=== PATIENT | male | born 1990 | race Caucasian/White ===

== ENCOUNTER 2016-06-24 12:12 | Emergency (ER) | payer SELFPAY ==
[~2016-06-24] VITALS: Ht 175.3 cm; Wt 68.2 kg
[2016-06-24 12:22] VITALS: TEMP 37.1; Ht 175.3 cm; Wt 68.2 kg
[2016-06-24] MEDS ORDERED: LORAZEPAM 1 MG TAB SL STA (13:02)
--- NOTE | 2016-06-24 13:07 | EMERGENCY ROOM VISIT NOTE ---
History Report prepared by Valenciaibcherise: Staci Chavez Under the Supervision of: Dr. Alexys Scruggs D.O. First contact with patient: 12:48 Chief Complaint: OVERDOSE (ACCIDENTAL) Stated Complaint: OVERDOSE Nursing Triage Summary: pt presents to ed via bls with [facility] police. pt is states taking methadone, smoking crack, taking adderal and speed. pt states being very jittery and unable to sleep. police at bedside due to pt being under arrest. pt aggitated upon examination. History of Present Illness The patient is a 25 year old male who presents to the Emergency Room with complaints of constant drug use. Per nursing staff, police and patient. The patient was brought to the ED by [facility] police. He was found running around people's yards and looking in their windows. The patient was then arrested by the police. The patient states that he has not slept lately and has been using meth, crack, Adderall, speed and heroine. He does use IV during drug abuse. Patient states he is negative for HIV or Hepatitis last time he was tested. This HPI is limited due to patient's uncooperative state. Source of History: patient History Limited By: poor cooperation Position: other (global) Quality: other (drug use) Note: Patient admits to using meth, crack, Adderall, speed and heroine. Review of Systems See HPI for pertinent positives & negatives. A total of 10 systems reviewed and were otherwise negative. Past Medical & Surgical Medical Problems: (1) Drug abuse Family History Unable to be obtained Social History Smoking Status: Current Every Day Smoker Drug Use: cocaine, heroin Current/Historical Medications No Active Prescriptions or Reported Meds Allergies Coded Allergies: No Known Allergies (Verified , 06/24/16) Physical Exam Vital Signs Date Time Temp Pulse Resp B/P Pulse Ox O2 Delivery O2 Flow Rate FiO2 06/24/16 16:26 104 22 125/83 97 06/24/16 14:52 101/87 06/24/16 12:22 37.1 115 18 139/72 100 Room Air Physical Exam GENERAL: Patient is awake, alert, very anxious and very agitated and guarded. EYES: The conjunctivae are clear. The pupils are dilated, minimally reactive to light bilaterally. EARS, NOSE, MOUTH AND THROAT: The nose is without any evidence of any deformity. Mucous membranes are moist tongue is midline NECK: The neck is nontender and supple. RESPIRATORY: Normal respiratory effort is noted there is no evidence of wheezing rhonchi or rales CARDIOVASCULAR: Tachycardic rate and regular rhythm noted there no murmurs rubs or gallops normal S1 normal S2 GASTROINTESTINAL: The abdomen is soft. Bowel sounds are present in all quadrants. Abdomen is nontender MUSCULOSKELETAL/EXTREMITIES: There is no evidence of gross deformity full range of motion is noted in the hips and shoulders SKIN: Skin ulcerations noted over upper and lower extremities and face. No erythema. Trace dickerson on right upper extremity. No fluctuans appeared. NEUROLOGIC: Patient is awake alert and oriented x3 strength. Appears to be having psycho motor agitations, trouble sitting still. PSYCH: No homicidal or suicidal ideations. Admits to drug use. Medical Decision & Procedures Laboratory Results 06/24/16 13:35 Red Blood Count 5.11, Mean Corpuscular Volume 84.3, Mean Corpuscular Hemoglobin 31.5, Mean Corpuscular Hemoglobin Concent 37.4, Mean Platelet Volume 9.5, Neutrophils (%) (Auto) 86.5, Lymphocytes (%) (Auto) 11.3, Monocytes (%) (Auto) 1.8, Eosinophils (%) (Auto) 0.0, Basophils (%) (Auto) 0.1, Neutrophils # (Auto) 16.01, Lymphocytes # (Auto) 2.10, Monocytes # (Auto) 0.34, Eosinophils # (Auto) 0.00, Basophils # (Auto) 0.01 06/24/16 13:35 Test 06/24/16 13:35 06/24/16 13:44 White Blood Count 18.52 K/uL (4.8-10.8) Red Blood Count 5.11 M/uL (4.7-6.1) Hemoglobin 16.1 g/dL (14.0-18.0) Hematocrit 43.1 % (42-52) Mean Corpuscular Volume 84.3 fL (80-100) Mean Corpuscular Hemoglobin 31.5 pg (25-34) Mean Corpuscular Hemoglobin Concent 37.4 g/dl (32-36) Platelet Count 462 K/uL (130-400) Mean Platelet Volume 9.5 fL (7.4-10.4) Neutrophils (%) (Auto) 86.5 % Lymphocytes (%) (Auto) 11.3 % Monocytes (%) (Auto) 1.8 % Eosinophils (%) (Auto) 0.0 % Basophils (%) (Auto) 0.1 % Neutrophils # (Auto) 16.01 K/uL (1.4-6.5) Lymphocytes # (Auto) 2.10 K/uL (1.2-3.4) Monocytes # (Auto) 0.34 K/uL (0.11-0.59) Eosinophils # (Auto) 0.00 K/uL (0-0.5) Basophils # (Auto) 0.01 K/uL (0-0.2) RDW Standard Deviation 39.1 fL (36.4-46.3) RDW Coefficient of Variation 12.9 % (11.5-14.5) Immature Granulocyte % (Auto) 0.3 % Immature Granulocyte # (Auto) 0.06 K/uL (0.00-0.02) Anion Gap 12.0 mmol/L (3-11) Est Creatinine Clear Calc Drug Dose 72.6 ml/min Estimated GFR () 73.9 Estimated GFR (Non- 63.8 BUN/Creatinine Ratio 19.3 (10-20) Calcium Level 9.9 mg/dl (8.5-10.1) Total Bilirubin 1.2 mg/dl (0.2-1) Direct Bilirubin 0.4 mg/dl (0-0.2) Aspartate Amino Transf (AST/SGOT) 66 U/L (15-37) Alanine Aminotransferase (ALT/SGPT) 81 U/L (12-78) Alkaline Phosphatase 72 U/L (45-117) Total Protein 8.0 gm/dl (6.4-8.2) Albumin 4.7 gm/dl (3.4-5.0) Globulin 3.3 gm/dl (2.5-4.0) Albumin/Globulin Ratio 1.4 (0.9-2) Thyroid Stimulating Hormone (TSH) 0.145 uIu/ml (0.300-4.500) Ethyl Alcohol mg/dL < 3.0 mg/dl (0-3) Bedside Glucose 89 mg/dl (70-99) Laboratory results per my review. Medications Administered Medications (Trade) Dose Ordered Sig/Radhika Route Start Time Stop Time Status Last Admin Dose Admin Lorazepam (Ativan Tab) 1 mg NOW STAT SL 06/24/16 13:02 06/24/16 13:03 DC 06/24/16 13:35 1 MG ED Course 1301: The patient was evaluated in room A7. A complete history and physical examination were performed. 1302: Ativan Tab 1 mg SL. 1611: Upon reevaluation, the patient is hemodynamically stable. I discussed the results and treatment plan with him. He verbalized agreement of the treatment plan. He was discharged home. Medical Decision Differential diagnosis: Etiologies such as mood disorder, infection, hypoglycemia, electrolyte abnormalities, cardiac sources, intracerebral event, toxicologic, neurologic, as well as others were entertained. Nursing notes reviewed. Additional history is obtained from the police. The patient is a 25-year-old male who presented to the emergency apartment for an evaluation after suspected drug abuse. The patient was arrested by police after he was witnessed trespassing. The patient states he felt very anxious. He admitted to drug abuse. He had no reported trauma. The patient had a normal neurologic exam. He did not have any suicidal or homicidal ideation. The patient was treated with Ativan in the emergency department. He was reevaluated multiple times. He did not of a fever. The patient refused to give a urine. He was felt to be medically cleared and discharged with the police. Impression Primary Impression: Drug abuse Scribe Attestation The scribe's documentation has been prepared under my direction and personally reviewed by me in its entirety. I confirm that the note above accurately reflects all work, treatment, procedures, and medical decision making performed by me. Departure Information Dispostion Home / Self-Care Prescriptions No Active Prescriptions or Reported Meds Forms HOME CARE DOCUMENTATION FORM, IMPORTANT VISIT INFORMATION, WORK / SCHOOL INSTRUCTIONS Patient Instructions ED Drug Abuse General, My [facility]
[2016-06-24 13:51] LABS: BASO % 0.1 %; BASO ABS # 0.01 K/uL (0-0.2); COMPLETE YES; HEMATOCRIT 43.1 % (42-52); IG% 0.3 %; LYMPH % 11.3 %; MEAN CELL VOLUME 84.3 fL (80-100); MEAN CORPUSCULAR HEMOGLOBIN 31.5 pg (25-34); MEAN CORPUSCULAR HGB CONC 37.4 g/dl (32-36); MEAN PLATELET VOLUME 9.5 fL (7.4-10.4); MONO % 1.8 %; NEUT % 86.5 %; PLATELET COUNT 462 K/uL (130-400); RED BLOOD COUNT 5.11 M/uL (4.7-6.1); WHITE BLOOD COUNT 18.52 K/uL (4.8-10.8)
[2016-06-24 14:09] LABS: BUN/CREATININE RATIO 19.3 (10-20); CALCIUM 9.9 mg/dl (8.5-10.1); CREATININE 1.5 mg/dl (0.60-1.40); POTASSIUM 3.8 mmol/L (3.5-5.1)
[2016-06-24 14:19] LABS: ALB/GLOB RATIO 1.4 (0.9-2); THYROID STIMULATING HORMONE 0.145 uIu/ml (0.300-4.500)
[2016-06-24 16:26] VITALS: BP 125/83; PULSE 104; O2SAT 97
== END 2016-06-24 16:28 | disposition home or self-care (01) ==
LOC: C.EDA 12:12 → EDBD 12:12 → C.EDA 16:28
DX: F19.10 Other psychoactive substance abuse, uncomplicated (principal)

== ENCOUNTER 2017-08-02 01:55 | Emergency (ER) | payer SELFPAY ==
[~2017-08-02] VITALS: Ht 177.8 cm; Wt 78.2 kg
[2017-08-02 01:58] VITALS: TEMP 36.8; Ht 177.8 cm; Wt 78.2 kg
[2017-08-02] MEDS ORDERED: LORAZEPAM 2 MG TAB PO STA (02:21)
[2017-08-02] MEDS ORDERED: CLONIDINE HCL 0.2 MG/24 HR TRANSDERM SYS TD STA (02:21)
[2017-08-02] MEDS ORDERED: ONDANSETRON 4MG OD TAB PO STA (02:21)
--- NOTE | 2017-08-02 02:25 | EMERGENCY ROOM VISIT NOTE ---
History Report prepared by Nixon: Trudy Waite Under the Supervision of: Anabel LeivaO. First contact with patient: 02:08 Chief Complaint: DETOX REQUEST Stated Complaint: DEXTOX REQUEST History of Present Illness The patient is a 27 year old male who presents to the Emergency Room with a detox request. He notes he is addicted to heroine. He persistently feels the urge to use drugs. He states he last used it a couple of hours ago. He reports he has never been to rehab or an AA meeting. The patient notes he snorts and injects heroine. When asked how long he has been using drugs, he states: "I haven't been using them for as long as it may seem". He states "I use every drug ", including but not limited to heroine, cocaine, and alcohol. He notes he does not drink alcohol every day. The patient reports he wakes up every day with anxiety because of the demand to want to use drugs. He notes he has never taken prescribed medication for anxiety. He states he has not slept or ate in 3 days which is causing him to hallucinate. He notes his family and friends want him to get better but they do not push him to do so. He states he has nausea and chills. The patient denies any diarrhea. Source of History: patient Onset: a couple of hours ago Position: other (drug detox) Timing: other (persistent) Associated Symptoms: + chills, + nausea, No diarrhea Review of Systems See HPI for pertinent positives & negatives. A total of 10 systems reviewed and were otherwise negative. Past Medical & Surgical Medical Problems: (1) Drug abuse Family History Unable to be obtained Social History Smoking Status: Current Every Day Smoker Drug Use: cocaine, heroin Current/Historical Medications Scheduled Ondasetron Odt (Zofran Odt), 4 MG SL Q6H Allergies Coded Allergies: No Known Allergies (Verified , 08/02/17) Physical Exam Vital Signs Date Time Temp Pulse Resp B/P (MAP) Pulse Ox O2 Delivery O2 Flow Rate FiO2 08/02/17 04:31 98 20 137/85 98 08/02/17 01:58 36.8 111 18 143/89 96 Room Air Physical Exam GENERAL: alert, anxious and mildly agitated appearing, well nourished, no distress, non-toxic EYE EXAM: normal conjunctiva, PERRL and EOM's grossly intact OROPHARYNX: no exudate, no erythema, lips, buccal mucosa, and tongue normal and mucous membranes are moist NECK: supple, no nuchal rigidity, no adenopathy, non-tender LUNGS: Clear to auscultation. Normal chest wall mechanics HEART: no murmurs, S1 normal and S2 normal ABDOMEN: abdomen soft, non-tender, normo-active bowel sounds, no masses, no rebound or guarding. BACK: Back is symmetrical on inspection and there is no deformity, no midline tenderness, no CVA tenderness. SKIN: track dickerson noted on right AC. UPPER EXTREMITIES: upper extremities are grossly normal. LOWER EXTREMITIES: No pitting edema. NEURO EXAM: Normal sensorium, normal speech, no [gross] weakness of arms, no [ gross] weakness of legs. Medical Decision & Procedures Medications Administered Medications (Trade) Dose Ordered Sig/Radhika Route Start Time Stop Time Status Last Admin Dose Admin Clonidine HCl ([id number]-[id number]-1 0.2mg/24hr Patch) 1 patch NOW STAT TD 08/02/17 02:21 08/02/17 02:23 DC 08/02/17 03:22 1 PATCH Ondansetron HCl (Zofran Odt) 4 mg NOW STAT PO 08/02/17 02:21 08/02/17 02:23 DC 08/02/17 02:34 4 MG Lorazepam (Ativan Tab) 2 mg STK-MED ONCE .ROUTE 08/02/17 02:31 08/02/17 02:32 DC 08/02/17 02:34 2 MG ED Course 0208: The patient was evaluated in room A5. A complete history and physical exam was performed. 0221: Zofran Odt 4 mg PO, Ativan Tab 2 mg PO, Clonidine HCl 1 patch TD. 0231: Ativan Tab 2 mg .ROUTE. 0405: Upon reevaluation, the patient is feeling better. I discussed the findings and the treatment plan with the patient. Patient seen and evaluated by case management and offered instructions and outpatient resources for drug rehab. Patient made aware that we do not do inpatient drug rehab list people are having severe side effects requiring medical management. He verbalizes agreement and understanding. The patient is ready for discharge. Medical Decision Differential diagnosis: Etiologies such as toxicologic, infection, hypoglycemia, electrolyte abnormalities, cardiac sources, intracerebral event, neurologic, as well as others were entertained. Patient well-appearing here, mildly agitated, and requesting inpatient drug rehab. Patient currently unemployed and homeless, with minimal family support. Unfortunately patient does not currently have any health insurance which severely limits her resources to help get him placed into drug rehab. Patient offered medications to help with his withdrawal symptoms. Patient was stable vital signs, not currently altered, high, or intoxicated. Patient with clear speech, cooperative, able to answer questions. Patient monitored for while in the emergency department, to watch for any evolving signs of more concerning drug withdrawal. Number noted. Upon learning that we do not do inpatient drug rehab and the patient will be required to make some additional effort to seek out resources as an outpatient, he demanded to be discharged. I do not feel patient is currently a danger to himself or anyone else, he denied any SI or HI. Patient concerned about withdrawal effects from his long-term drug use. Discussed with him symptoms to watch and return for, he verbalized understanding was agreeable with plan. Medication Reconcilliation Current Medication List: was personally reviewed by me Impression Primary Impression: Drug abuse Scribe Attestation The scribe's documentation has been prepared under my direction and personally reviewed by me in its entirety. I confirm that the note above accurately reflects all work, treatment, procedures, and medical decision making performed by me. Departure Information Dispostion Home / Self-Care Prescriptions Ondasetron Odt (ZOFRAN ODT) 4 Mg Tab 4 MG SL Q6H for Nausea, #14 TAB Prov: Cinthia Saravia, DO 08/02/17 Referrals No Doctor, Assigned (PCP) Patient Instructions My [facility] Additional Instructions Please stop using drugs. Use of drugs can result in continuous [facility] [employer] [facility] complications, incarceration, and even . You may use the nausea medication as prescribed. You may leave the patch on for 72 hours. Please call today to the numbers given to you by the rehabilitation caseworker. If you have any worsening symptoms, please return to the emergency room.
[2017-08-02] MEDS ORDERED: LORAZEPAM 1 MG TAB ONE (02:31)
[2017-08-02] MEDS ORDERED: ONDA4TAB10 SL (04:12)
[2017-08-02 04:31] VITALS: BP 137/85; PULSE 98; O2SAT 98
== END 2017-08-02 04:31 | disposition home or self-care (01) ==
LOC: C.EDB 01:56 → C.EDA 04:31
DX: F11.10 Opioid abuse, uncomplicated (principal); F14.10 Cocaine abuse, uncomplicated; F10.10 Alcohol abuse, uncomplicated; F17.200 Nicotine dependence, unspecified, uncomplicated; R68.83 Chills (without fever); R11.0 Nausea